=== PATIENT | female | born 1985 | race Caucasian/White ===

== ENCOUNTER 2024-04-20 13:44 | Emergency (ER) | payer OTHER ==
[2024-04-20 13:50] VITALS: BP 132/91; PULSE 98; RESP 18; TEMP 98.5; BMI 26.6
[2024-04-20] MEDS ORDERED: ACETAMINOPHEN 325 MG TABLET (FP) ONE (14:28)
[2024-04-20] MEDS: ACETAMINOPHEN 325 MG TABLET (FP) PO ONE (14:30)
[2024-04-20] MEDS ORDERED: KETOROLAC TROMETHAMINE 30 MG/1 ML VIAL ONE (15:06)
[2024-04-20] MEDS: KETOROLAC TROMETHAMINE 30 MG/1 ML VIAL IM ONE (15:15)
== END 2024-04-20 16:20 | disposition home or self-care (01) ==
LOC: FER 13:44
PROC: 3E0233Z Introduction of Anti-inflammatory into Muscle, Percutaneous Approach (ICD-10-PCS; principal; 2024-04-20)
DX: S99.922A Unspecified injury of left foot, initial encounter (principal); M25.572 Pain in left ankle and joints of left foot; W10.9XXA Fall (on) (from) unspecified stairs and steps, initial encounter
CPT/HCPCS: 73590-TC-LT-FY; 73610-TC-LT-FY; 73630-TC-LT; 84703; 99284-25